=== PATIENT | male | born 1955 | race Caucasian/White ===

== ENCOUNTER 2023-10-18 19:14 | Emergency (ER) | payer BC, SELFPAY ==
[2023-10-18 19:16] VITALS: BP 182/106
[2023-10-18 19:31] LABS: Urine Albumin Negative (Neg - Trace); Urine Bilirubin Negative (Negative); Urine Character Clear (Clear); Urine Color Yellow; Urine Glucose Negative (Negative); Urine Ketone Negative (Negative); Urine Leukocyte Negative (Negative); Urine Nitrite Negative (Negative); Urine Occult Blood Negative (Negative); Urine Urobilinogen Negative (Neg - 1+)
--- NOTE | 2023-10-18 20:29 | ED.GENMED ---
History of Present Illness
General
Chief Complaint: Headache
Source: patient
Exam Limitations: none
Time Seen by Provider: 10/18/23 19:47
Travel History
Have you had any contact with someone who has COVID-19?: No
Do you have any symptoms of coronavirus? Fever > 100 degrees, chills, cough, shortness of breath, sore throat, loss of taste or smell, muscle aches, or headache?: No
History of Present Illness
History of Present Illness:
This is a 68 year old male that comes in with c/o right sided head, jaw and upper body pain. States that a couple of days ago he started with jaw pain. States that he blamed this on a tooth. States that the pain was also on the right sided of his
body from the waist up. States that he has a right sided headache and ear pain and Pain when he takes a deep breath on the right side. States that when he bends over the pain in his head increases. States that he went to the Dentist and his teeth
are ok. States that if he pushes on the temporal area of the neck this helps to relieve the discomfort. State that Advil calms things down but he still has pain on the right sided of the face and neck. States that he is also dizzy. Denies any
fever, chills, SOB, abd pain, nausea, vomiting, diarrhea, urinary burning.
Past History
Past History
ED Past Medical History: Other (Diverticulitis, )
ED Past Surgical History: Urological (Vasectomy) and Other (Hernia repair X 2)
Social History
Tobacco: Former smoker
Alcohol: Daily (Beer 1-2)
Personal:
Living: with family
Review of Systems
Review of Systems
All Other Systems: ROS reviewed and negative except as documented in HPI and ROS
Constitutional: Reports no symptoms; Denies fever or chills
EENT: Reports no symptoms
Respiratory: Reports trouble breathing (Pain with deep breath); Denies cough
Cardiac: Reports chest pain (Pain with deep breath right sided)
ABD/GI: Reports no symptoms; Denies abdominal pain, nausea, vomiting or diarrhea
: Reports no symptoms; Denies dysuria, frequency or urgency
Musculoskeletal: Reports no symptoms
Skin: Reports no symptoms
Neurological: Reports dizzy and headache
Psychiatric: Reports no symptoms
Phy Exam
General Physical Exam
General Presentation: no apparent distress
General age: appears stated age
General Skin: warm and dry
General Habitus: normal
General Mental: alert
General Hydration: appears well hydrated
ENT Exam
ENT Exam: TM's normal, pharynx normal and neck supple
Eye Exam
Eye Exam: EOMI
Cardiovascular Exam
Cardiovascular Exam: regular rate/rhythm, no edema, no murmur and normal peripheral pulses
Pulmonary Exam
Pulmonary Exam: lungs clear, no respiratory distress, no rales, chest non tender, no crackles, no rhonchi, no wheezing and no cough
Gastrointestinal Exam
Gastrointestinal Exam: normal bowel sounds, non tender, soft, no organomegaly, no pulsatile mass and non distended
Musculoskeletal Exam
Musculoskeletal Exam: full ROM and no edema
Skin Exam
Skin Exam: normal color, warm/dry, no rash and no petechia
Psychiatric Exam
Psychiatric Exam: normal mood/affect
Course
Orders/Labs/Results
Orders:
Orders
10/18/23 19:27
Urinalysis Reflex To Culture Urgent
Date Specimen was Collected: 10/18/23
Time Specimen was Collected: 19:23
10/18/23 20:28
Electrocardiogram (*1) Urgent
Reason for Study: Shortness of Breath
CT Head & Neck Angio W/wo IV Urgent
Comment:
Reason For Exam: Right sided head and neck pain, jaw pain Dizziness
EKG- Treatment ONCE
10/18/23 20:29
CR Chest - 2 Views Urgent
Comment:
Reason For Exam: SOB
10/18/23 20:51
CRP [C-Reactive Protein] Urgent
Complete Blood Count/With Diff Urgent
Comprehensive Metabolic Panel Urgent
D-Dimer Urgent
Sed Rate [Erythrocyte Sed Rate] Urgent
Troponin I Urgent
Abnormal Lab Results
10/18/23
20:51
RBC 4.52 L 10^6/uL
(4.70-6.10)
MCH 31.6 H pg
(27.0-31.0)
Absolute Monos (auto) 0.9 H 10^3/uL
(0.1-0.6)
Monocytes % 12.2 H %
(1.7-9.3)
C-Reactive Protein 13.30 H mg/L
(0.0-10.00)
10/18/23 20:51
10/18/23 20:51
Sed rate normal at 14, D-dimer normal at 0.39, Troponin <0.012, CRP slightly elevated at 13.30, Urine negative for infection.
Vital Signs
Initial and Last Documented VS:
Initial Vital Signs
Temp Pulse Resp BP Pulse Ox
98.6 F 65 16 182/106 99
10/18/23 19:16 10/18/23 19:16 10/18/23 19:16 10/18/23 19:16 10/18/23 19:16
Last Documented Vital Signs
Temp Pulse Resp BP Pulse Ox
98.2 F 64 18 167/102 98
10/18/23 22:38 10/18/23 22:38 10/18/23 22:38 10/18/23 22:38 10/18/23 22:38
MDM/Problems Addressed
Differential Diagnosis Includes:
Temporal arteritis, Carotid dissection, PE
MDM/Problems Addressed:
This is a 68 year old male that comes in with multiple complaints. States that he has this right sided headache and pain that goes from this head to his waste. States that it started with jaw pain and has continued. States that he has pain with deep
breathing on the right side, ear pain an pain in the neck. States that if he bends over the pain increases.
Will get CT angio, Labs and chest x-ray
Back into see patient. Explained that his blood work is normal along with the CTA of the head and neck. Troponin is normal along with his D-dimer and his chest X-ray and ECG is normal. Patient to follow up with the family doctor for further
evaluation. Patient can use Tylenol or Ibuprofen for his discomfort. Return with any concerns.
Chronic conditions affecting care:
NA
Acute Exacerbation and/or Progression of Chronic Illness:
NA
*Radiology
Radiology exam reviewed: preliminary read by ED provider (Chest- Negative for active disease), radiology read reviewed (CTA head and neck- There is mild calcification involcing the posterior aspect of the proximal left ICA, with less than 25%
diameter reduction. NO significant calcification or narrowing of the right carotid bulb or proximal right ICA. There is no evidence for carotid arterial dissection.), all reviewed NAD by ED Provider (CTA cont-Normal appearance of the anterior
cerebral and midle cerebral arterids bilaterally. Left vertebral artery mainly terminates as the left posterior inferior cerebellar artery. Small branch continuing to joint the right vertebral artery and form the basilar artery. Basilar artery is of
) and other (CTA cont- relatively small caliber, with both posterior cerebral arteries being supplied by patent posterior communicating arteries. There is no evidence for vertebrobasilar dissection. Percent stenosis is calculated using NASCET
criteria. )
*Pulse Oximetry
Patient hypoxic: no
*EKG
Interpreted by ED Provider?: Yes
Heart Rate: 60
Rate: normal
Rhythm: sinus
Mobile: left axis deviation
Interval: normal interval
QRS Pattern: normal QRS
Ischemia: no ischemia
*Critical Care Note
Total Time (30-74mins, 75-104mins- exclusive of procedures): Not Applicable
ED Attending Note
-
Portions of this chart may have been created with voice recognition software.� Occasional wrong word or��sound alike� substitutions may have occurred due to the inherent limitations of voice recognition software.
Discharge Plan
Departure
Patient Disposition: Home (Routine Discharge)
Date of Disposition: 10/18/23
Time of Disposition: 22:34
Patient with high blood pressure during this ER visit?: Yes
Condition: Good
Covid-19: Not Applicable
Discharge Problem:
Headache, Jaw pain, Neck pain on right side
Instructions: Headache, Adult (DC), BLOOD PRESSURE
Prescriptions:
New
lisinopril 5 mg tablet
5 mg PO DAILY Qty: 15 0RF
Referrals:
Emil Alfonso MD [Family Provider] - Follow up in 2-3 days
Activity Restrictions/Additional Instructions:
As discussed, your blood work is normal. Your CTA of the neck and head is normal. Your chest x-ray is normal along with your ECG. Please follow up with the family doctor for further evaluation. You may use Tylenol and/or Ibuprofen for any pain. IF
YOU HAVE INCREASED OR CHANGING PAIN, OR YOU HAVE ANY OTHER CONCERNS PLEASE RETURN TO THE EMERGENCY ROOM.
Interventions
Interventions:
*Risk Screen - Suicide Last Done: 10/18/23 21:00
*General Assessment Last Done: 10/18/23 19:16
*Neglect/Abuse Screening Last Done: 10/18/23 21:00
ED- Fall Risk Assessment Last Done: 10/18/23 21:01
*ED COVID-19 Vaccine History Last Done: 10/18/23 21:00
ED- Neurological Assessment Last Done: 10/18/23 21:01
Discharge Date and Time
Print Language: NEPALESE
[2023-10-18 20:58] LABS: % Basophils 0.7 % (0-2); % Eosinophils 3.3 % (0-6); % Immature Granulocytes 0.4 % (0-0.5); % Lymphocytes 32.6 % (20.5-51.1); % Monocytes 12.2 % (1.7-9.3); % Neutrophils 50.8 % (42.2-75.2); Absolute Basophils 0.1 10^3/uL (0-0.2); Absolute Eosinophils 0.2 10^3/uL (0-0.7); Absolute Lymphocytes 2.4 10^3/uL (1.2-3.4); Absolute Monocytes 0.9 10^3/uL (0.1-0.6); Absolute Neutrophils 3.7 10^3/uL (1.4-6.5); Hematocrit 39.4 % (39.0-52.0); Hemoglobin 14.3 g/dL (13.0-18.0); Mean Corp Hgb Conc. 36.3 g/dL (33.0-37.0); Mean Corpuscular Hgb 31.6 pg (27.0-31.0); Mean Corpuscular Volume 87.2 fL (80.0-94.0); Mean Platelet Volume 10.4 fL (7.4-10.4); Nucleated Red Blood Cells % 0 % (-); Platelet Count 204 10^3/uL (130-400); Red Blood Cell Count 4.52 10^6/uL (4.70-6.10); Red Cell Dist. Width 12.2 % (11.5-14.5); White Blood Cell Count 7.3 10^3/uL (4.8-10.8)
[2023-10-18 20:59] VITALS: BMI 28.8
[2023-10-18 21:04] LABS: Erythrocyte Sed Rate 14 mm/hour (0-20)
[2023-10-18 21:12] LABS: D-Dimer 0.39 ug/mlFEU (0.00-0.50)
[2023-10-18 21:19] LABS: ALT (SGPT) 34 U/L (0-50); AST (SGOT) 40 U/L (17-59); Alkaline Phosphatase 77 U/L (38-126); Blood Urea Nitrogen 15 mg/dl (9-20); Calcium 9.4 mg/dl (8.4-10.2); Carbon Dioxide 26 mmol/L (22-30); Chloride 103 mmol/L (98-107); Estimated Creatinine Clearance 104 ml/min; Glucose 80 mg/dl (70-99); Potassium 3.7 mmol/L (3.5-5.1); Sodium 135 mmol/L (135-145); Total Bilirubin 0.7 mg/dl (0.2-1.3); Total Protein 6.6 g/dl (6.3-8.2); eGFR > 60.00
[2023-10-18 21:23] LABS: Troponin I < 0.012 ng/ml
[2023-10-18 22:38] VITALS: BP 167/102
[2023-10-18] MEDS: ZESTRIL 5 MG PO (22:47)
== END 2023-10-18 22:54 | disposition home or self-care (01) ==
LOC: EMR 19:14
PROVIDERS: Clinical Nurse Specialist Family Health; Emergency Medicine; EMERGENCY PHYSICIAN Emergency Medicine; FAMILY PHYSICIAN Family Medicine
DX: R51.9 Headache, unspecified (principal); R42 Dizziness and giddiness; R06.02 Shortness of breath; R07.9 Chest pain, unspecified; R68.84 Jaw pain; M54.2 Cervicalgia; H92.01 Otalgia, right ear; Z87.891 Personal history of nicotine dependence
CPT/HCPCS: 99285; 70496; 70498; 71046; 80053; 81003; 84484; 85025; 85379; 85652; 86140; 93005; Q9967